=== PATIENT | female | born 2000 | race Caucasian/White ===

== ENCOUNTER 2025-02-06 01:01 | Day surgery (SDC) | payer BC, SELFPAY ==
[2025-02-04 18:32] VITALS: BMI 24.7
--- NOTE | 2025-02-04 19:03 | PC.NURSE ---
Report to the Outpatient Waiting Room, entrance under the green pavilion located off [facility], at 1230 on 02-06-25. Planned Procedure Time: 1430.? Time changes happen often and if your time is changed the preop area will call you the afternoon before. - You and your visitor will be asked to self-screen and do not enter if you have any COVID symptoms. Please call surgeon if you need to reschedule. - A mask is optional within the hospital at this time. Patients may have clear liquids (water, carbonated beverages, clear teas, apple juice) until 3 hours prior to surgery with a maximum of 20 ounces. 1130 - No food from midnight until time of surgery and no smoking, or chewing tobacco (or any form of nicotine). No chewing gum, candy or mints. - Infants may have breast milk until 4 hours before surgery, formula 6 hours prior to surgery. - Children will be allowed to drink immediately following surgery.? If applicable, please bring a bottle or sippy cup to assist with drinking. Juice, water, soda, and popsicles are readily available.? For infants on formula, please bring formula the day of surgery.? Pacifiers are allowed. Take only the following medications with a SIP of water on the morning of surgery: None DO NOT STOP ANY OF YOUR OTHER PRESCRIPTION MEDICATIONS PRIOR TO SURGERY EXCEPT THE FOLLOWING Hold all vitamins and supplements for 3 days per anesthesiologist. Medications to discontinue per physician: N/A Please no make-up, nail pashto, hairspray, perfume, deodorant, or body powder the day of surgery.? No jewelry (including any body piercings) or valuables the day of surgery, leave them at home.? Please take a shower or bath the night before, or the morning of, surgery with an antibacterial soap.? Wear comfortable, loose fitting clothing.? Children are encouraged to wear pajamas. - Jewelry must be removed prior to entering the operating room.? Rings and piercings that are not removed may be cut off. - The hospital will not accept responsibility for valuables.? - Please leave all valuables, including medications, at home the day of surgery. If you are going home after surgery, a licensed roll off driver must drive you home.? - NO public transportation without another adult if you receive anesthesia. - We recommend that an adult stay with you for 24 hours following discharge. - We also recommend that you do not drive, make important decision, drink alcoholic beverages, or take any drugs that were not prescribed by your health care provider for at least 24 hours after your discharge time. For Pediatric surgeries, we recommend two adults accompany the child home. Follow any additional instructions given to you from your surgeon. Telephone instructions given to Elida Gifford and asked if any additional questions and then verbalized understanding. Patient advised to call surgeon office or pre surgery nurse liaison [phone] if any additional questions.
--- OUTSIDE RECORDS SUMMARY | 2025-02-06 01:04 | XMS_ITS | Referral Summary ---
Author Organization [facility] Building A Address [address] [place] [address] Care Team Providers Care Nickel Plater Name Role Phone Nuris Arriaga MD Primary Care Provider Encounters Date Type Department Care Team Description 01/26/2025 2:16 PM CDT - 01/26/2025 3:17 PM CDT Emergency [facility] Emergency Department [address] [place] [address] Naty Kitchen MD First trimester bleeding (Primary Dx); Rh negative status during in first trimester Discharge Disposition: Discharge to home or self care 11/28/2024 2:28 AM DUMP MOTOR OPERATOR - 11/28/2024 6:22 AM [facility] Emergency [facility] Emergency Department [address] [place] [address] Bernardo Bobby MD Nausea/vomiting in (Primary Dx) Discharge Disposition: Discharge to home or self care from Last 3 Months Allergies No known active allergies Medications albuterol HFA (PROVENTIL HFA,VENTOLIN HFA,PROAIR HFA) 90 mcg/actuation inhaler INHALE 1 TO 2 PUFFS BY MOUTH EVERY 4 TO 6 HOURS NEEDED 9 Active loratadine (CLARITIN) 10 mg tablet Take 1 tablet (10 mg total) by mouth daily Active montelukast (SINGULAIR) 5 mg chewable tablet Take 1 tablet (5 mg total) by mouth daily 9 Active levothyroxine (SYNTHROID) 125 mcg tablet Take 1 tablet (125 mcg total) by mouth daily 90 tablet 1 3 Active PNV cmb 46-ixog-VZ-omega-3- dha 29 mg iron- 1 mg-200 mg combo packIndications:pre gnancy Take 1 tablet by mouth daily 30 each 8 5 Active doxylamine-pyridoxi ne, vit B6, (DICLEGIS) 10-10 mg tablet Take 1 tablet by mouth nightly as needed for nausea 30 tablet 2 5 Active ondansetron ODT (ZOFRAN-ODT) 8 mg disintegrating tabletIndications:E xcessive Vomiting in Take 1 tablet (8 mg total) by mouth every 8 (eight) hours as needed for nausea or vomiting Dissolve 1 tablet oral every 4 hours as needed for nausea or vomiting. 30 tablet 5 Active Active Problems Problem Noted Date Diagnosed Date First trimester bleeding 01/26/2025 Rh negative status during in first tri mester 01/26/2025 Primary hypothyroidism 02/21/2021 Assessment & Plan (05/14/2023 9:27 AM CDT): Diagnosed at the age of 5, and has been on levothyroxine under the care of pediatric Endocrinology -Disease has not been controlled due to non-compliance with Levothyroxine TSH was high at 75 on 02/24/21 TSH was still high at 30.47 on 09/09/21 TSH was still high at 12.4 on 03/27/22 Last TSh was 6.0 in October/2022 Patient again was not compliant with medication in last few month. Plan: Again Discussed with patient the importance of taking Levothyroxine on daily basis. Explained complication and symptoms of low thyroid. Continue same dose of Levothyroxine The proper way of taking Levothyroxine reviewed with patient. Check TSH and free T4 in 4-6 weeks I will adjust the dose based on lab results. Assessment & Plan (09/26/2022 10:21 AM DUMP MOTOR OPERATOR): Diagnosed at the age of 5, and has been on levothyroxine under the care of pediatric Endocrinology -Disease has not been controlled due to non-compliance with Levothyroxine TSH was high at 75 on 02/24/21 TSH was still high at 30.47 on 09/09/21 TSH was still high at 12.4 on 03/27/22 Plan: Again Discussed with patient the importance of taking Levothyroxine on daily basis. Explained complication and symptoms of low thyroid. Continue same dose of Levothyroxine The proper way of taking Levothyroxine reviewed with patient. Check TSH and free T4 today I will adjust the dose based on lab results. Patient informed about the need to check thyroid blood test once she gets as her levels may change and will need close monitoring during . Assessment & Plan (03/27/2022 10:03 AM CDT): Diagnosed at the age of 5, and has been on levothyroxine under the care of pediatric Endocrinology -Disease has not been controlled due to non-compliance with Levothyroxine TSH was high at 75 on 02/24/21 TSH was still high at 30.47 on 09/09/21 Plan: Discussed with patient the importance of taking Levothyroxine on daily basis. Explained complication and symptoms of low thyroid. Continue same dose of Levothyroxine The proper way of taking Levothyroxine reviewed with patient. Check TSH and free T4 today I will adjust the dose based on lab results. Patient informed about the need to check thyroid blood test once she gets as her levels may change and will need close monitoring during . Assessment & Plan (09/09/2021 10:20 AM CDT): Diagnosed at the age of 5, and has been on levothyroxine under the care of pediatric Endocrinology -Disease has not been controlled due to non-compliance with Levothyroxine TSH was high at 75 on 02/24/21 With low free T4 of 0.7 Plan: Discussed with patient the importance of taking Levothyroxine on daily basis. Continue same dose of Levothyroxine The proper way of taking Levothyroxine reviewed with patient. Check TSH and free T4 today I will adjust the dose based on lab results. Patient informed about the need to check thyroid blood test once she gets as her levels may change and will need close monitoring during . Assessment & Plan (02/21/2021 11:42 AM CDT): Diagnosed at the age of 5, and has been on levothyroxine under the care of pediatric Endocrinology Has history of non- compliance, but doing better lately Patient is clinically euthyroid TSH was 1.7 on 01/03/21 Plan: Continue same dose of Levothyroxine The proper way of taking Levothyroxine reviewed with patient. Check TSH before next visit. I will adjust the dose based on lab results. Patient informed about the need to check thyroid blood test once she gets as her levels may change and will need close monitoring during . Estimated Date of Delivery Comme nts Yes 08/04/2025 Immunizations Immunization Administration Dates Next Due DTaP 07/28/2008, 5,05/04/2004,05/05,02/17/2003,2002 HPV, Quadrivalent 05/18/2014,08/20/2012,06/20/20 12 Hep B / HiB 05/05/2003,2002 Hep B, Adolescent or Pediatric 2002 HiB 05/04/2004,02/17/2003 IPV 05/22/2005, 4,02/17/2003,12/02 Influenza, Quadrivalent, Spl it, Preservative Free, Intramuscular 08/30/2020 Influenza, Split 09/15/2008 MMR 07/28/2008,05/22/2005,10/26/2003 Meningococcal B, OMV (Bexsero) 08/30/2020 Meningococcal MCV4P (Menactra) 08/30/2020,2013 OPV 07/28/2008 Tdap 05/01/2014 Varicella 10/03/2010,10/26/2003 Social History Tobacco Use Types Packs/Day Years Used Date Smoking Tobacco: Every Day Vaping Smokeless Tobacco: Never Tobacco Cessation:Ready to Q uit: Not Asked; Counseling Given: Not Answered Personal Safety Answer Date Recorded Have you ever been in or are you currently in a harmful physical or emotional relationship or is someone making you feel afraid or unsafe? Denies 01/26/2025 Estimated Date of Delivery Comme nts Yes 08/04/2025 Sex and Gender Information Value Date Recorded Sex Assigned at Not on file Legal Sex Female 2:56 PM CDT Gender Identity Female 09/26/2022 9:40 AM DUMP MOTOR OPERATOR Sexual Orientation Not on file Last Filed Vital Signs Vital Sign Reading Time Taken Comments Blood Pressure 113/66 01/26/2025 1:59 PM CDT Pulse 59 01/26/2025 1:59 PM CDT Temperature 36.7 C (98 F) 01/26/2025 1:59 PM CDT Respiratory Rate 16 01/26/2025 1:59 PM CDT Oxygen Saturation 100% 01/26/2025 1:59 PM CDT Inhaled Oxygen Concentration - - Weight 71.2 kg (157 lb) 01/26/2025 12:23 PM CDT Height 170.2 cm (5' 7 ) 01/26/2025 12:23 PM CDT Body Mass Index 24.59 01/26/2025 12:23 PM CDT Plan of Treatment Not on file Procedures Procedure Name Priority Date/Time Associated Diagnosis Comments US OB UNDER 14 WEEKS ED 01/26/2025 2:12 PM CDT DIFFERENTIAL AUTO STAT 01/26/2025 12: 31 PM CDT ABO/RH STAT 01/26/2025 12:31 PM CDT HCG, BLOOD, QUANTITATIVE STAT 01/26/2025 12:31 PM CDT CBC WITH AUTO DIFFERENTIAL STAT 01/26/2025 12:31 PM CDT URINALYSIS, MICROSCOPIC ONLY STAT 11/28/2024 4:09 AM DUMP MOTOR OPERATOR URINALYSIS AND REFLEX TO MICROSCOPIC STAT 11/28/2024 4:09 AM DUMP MOTOR OPERATOR POCT HCG, URINE Routine 11/28/2024 4:06 AM DUMP MOTOR OPERATOR EGFR STAT 11/28/2024 3:03 AM DUMP MOTOR OPERATOR DIFFERENTIAL AUTO STAT 11/28/2024 3:0 3 AM DUMP MOTOR OPERATOR COMPREHENSIVE METABOLIC PANEL STAT 11/28/2024 3:03 AM DUMP MOTOR OPERATOR CBC WITH AUTO DIFFERENTIAL STAT 11/28/2024 3:03 AM DUMP MOTOR OPERATOR from Last 3 Months Results * US Ob Under 14 Weeks (01/26/2025 2:12 PM CDT) Anatomical Region Laterality Modality Abdomen N/A Ultrasound 01/26/2025 2:07 PM CDT Narrative 01/26/2025 2:12 PM CDT EXAM DESCRIPTION: US PELVIS COMPLETE REASON FOR STUDY: Bleeding and pain during . Exclude ectopic. Beta-hCG: None available TECHNIQUE: Transabdominal images acquired of the pelvis. COMPARISON: None FINDINGS: Clinical gestational age: 12 weeks and 6 days Clinical estimated Due Date: 08/04/2025 Intrauterine gestational sac: Present Yolk sac: Present Subchorionic bleed: No Placenta: Not identified Osyka-rump length: 4.45 cm heart rate: 146 bpm Gestational age by this ultrasound: 11 weeks and 2 days MAC[place] by this ultrasound: 08/15/2025 Uterus: The uterus is anteverted , measuring 9.4 x 4.9 x 7.7 cm. Right Ovary/Adnexa: The right ovary measures 3.0 x 2.7 x 2.4 cm. There is documentation of color Doppler flow in the right ovary. The right ovary appears unremarkable. No adnexal mass. Left Ovary/Adnexa: The left ovary measures 3.0 x 2.1 x 1.5 cm. There is documentation of color Doppler flow in the left ovary. The left ovary appears unremarkable. No adnexal mass. Free Fluid: None. Other Findings: None. IMPRESSION: Suboptimal examination due to transabdominal only images. 1. Single live intrauterine with estimated gestational age by ultrasound of 11 weeks and 2 days and estimated due date of 08/15/2025. The heart rate is 146 beats per minute. The stated clinical age is 12 weeks and 6 days. Short-term follow-up is recommended. THIS IS AN ELECTRONICALLY VERIFIED FINAL REPORT 01/26/2025 2:12 PM - Electronically signed by Raoul Gao M.D. AG: RICHIE Report ID: [id number] Reading Location: [id number] Procedure Note Raoul Gao MD - 01/26/2025 EXAM DESCRIPTION: US PELVIS COMPLETE REASON FOR STUDY: Bleeding and pain during . Exclude ectopic. Beta-hCG: None available TECHNIQUE: Transabdominal images acquired of the pelvis. COMPARISON: None FINDINGS: Clinical gestational age: 12 weeks and 6 days Clinical estimated Due Date: 08/04/2025 Intrauterine gestational sac: Present Yolk sac: Present Subchorionic bleed: No Placenta: Not identified Osyka-rump length: 4.45 cm heart rate: 146 bpm Gestational age by this ultrasound: 11 weeks and 2 days MAC[place]IO by this ultrasound: 08/15/2025 Uterus: The uterus is anteverted , measuring 9.4 x 4.9 x 7.7 cm. Right Ovary/Adnexa: The right ovary measures 3.0 x 2.7 x 2.4 cm. Thereis documentation of color Doppler flow in the right ovary. The right ovary appears unremarkable. No adnexal mass. Left Ovary/Adnexa: The left ovary measures 3.0 x 2.1 x 1.5 cm. There is documentation of color Doppler flow in the left ovary. The left ovaryappears unremarkable. No adnexal mass. Free Fluid: None. Other Findings: None. IMPRESSION: Suboptimal examination due to transabdominal only images. 1. Single live intrauterine with estimated gestational age by ultrasound of 11 weeks and 2 days and estimated due date of 08/15/2025.The heart rate is 146 beats per minute. The stated clinical age is 12weeks and 6 days. Short-term follow-up is recommended. THIS IS AN ELECTRONICALLY VERIFIED FINAL REPORT 01/26/2025 2:12 PM - Electronically signed by Raoul Gao M.D. AG: AG Report ID: [id number] Reading Location: [id number] us [facility] IMG OB US PROCEDURES Final R esult * Differential, auto (01/26/2025 12:31 PM CDT) Neutrophil abs 5.7 1.5 - 6.5 K/cumm Imm gran abs 0.0 0.0 - 0.1 K/cumm [facility] Lymphocyte abs 2.5 0.8 - 3.3 K/cumm [facility] Monocyte abs 0.6 0.2 - 0.8 K/cumm [facility] ([place]) Eosinophil abs 0.1 0.0 - 0.5 K/cumm [facility] ([place]) Basophil abs 0.0 0.0 - 0.1 K/cumm [facility]) Neutrophil pct 63.8 % [facility] Comment: Interpretive Data Percent cell count reference ranges are not reported, since discordance with absolute values may lead to misinterpretation of CBC data. Current Interpretive Data was last revised on 2018. Imm gran pct 0.3 % [facility] Comment: Interpretive Data Percent cell count reference ranges are not reported, since discordance with absolute values may lead to misinterpretation of CBC data. Current Interpretive Data was last revised on 2018. Lymphocyte pct 27.6 % [facility] Comment: Interpretive Data Percent cell count reference ranges are not reported, since discordance with absolute values may lead to misinterpretation of CBC data. Current Interpretive Data was last revised on 2018. Monocyte pct 7.0 % [facility] Comment: Interpretive Data Percent cell count reference ranges are not reported, since discordance with absolute values may lead to misinterpretation of CBC data. Current Interpretive Data was last revised on 2018. Eosinophil pct 0.8 % [facility] Comment: Interpretive Data Percent cell count reference ranges are not reported, since discordance with absolute values may lead to misinterpretation of CBC data. Current Interpretive Data was last revised on 2018. Basophil pct 0.5 % [facility] Comment: Interpretive Data Percent cell count reference ranges are not reported, since discordance with absolute values may lead to misinterpretation of CBC data. Current Interpretive Data was last revised on 2018. Blood 01/26/2025 12:3 1 PM CDT 01/26/2025 12:34 PM CDT Geoffrey Mark MD LAB BLOOD ORDERABLES Final Res ult [facility] ([place]) 1 [facility] Department [place] [address] * (ABNORMAL) CBC with auto differential (01/26/2025 12:31 PM CDT) Pathologist [facility] WBC 8.9 3.8 - 9.9 K/cumm Hgb 12.6 11.9 - 15.5 g/dL [facility] Hct 37.9 35.6 - 45.5 % [facility] Plt 181 150 - 400 K/cumm [facility] MPV 8.8(L) 9.1 - 12.3 fL [facility] RBC 4.13 3.90 - 5.20 M/cumm [facility] MCV 91.8 81.3 - 96.4 fL [facility] MCH 30.5 27.1 - 33.3 pg [facility] MCHC 33.2 32.3 - 35.7 g/dL [facility] RDW CV 12.1 11.1 - 14.9 % [facility] RDW SD 40.6 35.7 - 48.1 fL [facility] NRBC abs 0.00 0.00 - 0.01 K/cumm [facility] Blood Venous blood specimen / Unknown 01/26/2025 12:31 PM CDT 01/26/2025 12:34 PM CDT Geoffrey Mark MD LAB BLOOD ORDERABLES Final Res ult [facility] ([place]) 1 [facility] [place] [address] * ABO/Rh (01/26/2025 12:31 PM CDT) ABO/Rh AB Negative Blood 01/26/2025 12:3 1 PM CDT 01/26/2025 12:34 PM CDT Geoffrey Mark MD LAB BLOOD BANK TEST ORDERABLES Final Result Performing Organization Address [facility] Co de Phone Number [facility] ([place]) [address] [place] [address] * (ABNORMAL) hCG, blood, quantitative (01/26/2025 12:31 PM CDT) hCG, quant 4,335.0(H ) 0.0 - 5.0 IUnits/L Comment: Interpretive Data Male: < 5 IU/L Non- premenopausal Female: <5 IU/L The [place] hCG Beta Quant assay procedure was used. Results from different manufacturers or methods may not be comparable. Serial testing should be performed using the same method. Interpretive Data was last revised on 2023 Blood 01/26/2025 12:3 1 PM CDT 01/26/2025 12:34 PM CDT Geoffrey Mark MD LAB BLOOD ORDERABLES Edited Re sult - Final Performing Organization Address City/[facility] Co de Phone Number [facility] ([place]) [address] [place] [address] * (ABNORMAL) Urinalysis reflex to microscopic (11/28/2024 4:09 AM DUMP MOTOR OPERATOR) Color, ur Yellow Yellow Clarity, ur Cloudy(A) Clear [facility] Specific gravity, ur 1.031(H) 1.003 - 1.030 [facility] pH, urine 7.0 [facility] Comment: Interpretive Data U rine pH is affected by diet, medications, systemic acid-base disturbances, and renal tubular function. pH may affect urinary stone formation. For example, urine pH below 6.0 may help reduce the tendency for calcium phosphate stones and pH greater than 6.0 may reduce the tendency for uric acid stone formation. Source: [facility] [employer] Current Interpretive Data was last revised on 2017 Protein, ur ql 1+(A) Negative [facility] Glucose, ur ql Negative Negative [facility] Ketones, ur 1+(A) Negative [facility] Bilirubin, ur Negative Negative [facility] Blood, ur Negative Negative [facility] Urobilinogen, ur <2.0 <2.0 mg/dL [facility] Nitrite, ur Positive(A) Negative [facility] Leukocyte esterase, ur Trace(A) Negative [facility] UA reflex comment Reflex to microscopic UA will be performed. [facility] Urine 11/28/2024 4:09 AM DUMP MOTOR OPERATOR 11/28/2024 4:16 AM DUMP MOTOR OPERATOR Bernardo Bobby MD LAB URINE ORDERABLES Fin al Result Performing Organization Address [facility] Co de Phone Number [facility] Department [place] [address] * (ABNORMAL) Urinalysis, microscopic only (11/28/2024 4:09 AM DUMP MOTOR OPERATOR) WBC, ur 6-10(A) 0 - 5 /HPF RBC, ur 0-2 0 - 2 /HPF [facility] Epithelial cells, squamous, ur 6-10(A) 0 - 5 /HPF [facility] Comment:Suggestive of contam ination. Consider recollection by clean catch. Bacteria, ur 4+(A) [facility] Mucous, ur Present(A ) [facility] Urine 11/28/2024 4:09 AM DUMP MOTOR OPERATOR 11/28/2024 4:16 AM DUMP MOTOR OPERATOR Bernardo Bobby MD LAB URINE ORDERABLES Fin al Result Performing Organization Address [facility] Co de Phone Number [facility] [place] [address] * (ABNORMAL) POCT hCG, urine (11/28/2024 4:06 AM DUMP MOTOR OPERATOR) HCG, ur, POC Positive(A) Negative Lot Number [id number] QC Backgroud Clear Acceptable QC Control Line Acceptable Urine 11/28/2024 4:06 AM DUMP MOTOR OPERATOR Bernardo Bobby MD POINT OF CARE TEST ORDER JARED Final Result * eGFR (11/28/2024 3:03 AM DUMP MOTOR OPERATOR) eGFR >90 >=60 mL/min/1. 73 m2 Comment: Interpretive Data Reference Interval Normal >/= 90 mL/min/1.73m2 Mildly decreased* 60 - 89 mL/min/1.73m2 Mildly to moderately decreased 45 - 59 mL/min/1.73m2 Moderately to severely decreased 30 - 44 mL/min/1.73m2 Severely decreased 15 - 29 mL/min/1.73m2 Kidney Failure < 15 mL/min/1.73m2 *Relative to young adult level Estimated glomerular filtration rate is determined by the 2020 CKD-EPI equation recommended by the National Kidney Foundation (A Unifying Approach to GFR Estimation: Recommendations of the NKF-ASK Task Force on Reassessing the Inclusion of Race in Diagnosing Kidney Disease, JASN 2020). The CKD-EPI equation should not be used for patients with unstable renal function and has not been validated in children and those over 70. Current interpretive data was last reviewed 2021. Blood 11/28/2024 3:03 AM DUMP MOTOR OPERATOR 11/28/2024 3:17 AM DUMP MOTOR OPERATOR Bernardo Bobby MD LAB BLOOD ORDERABLES Fin al Result [facility] [place] [address] * (ABNORMAL) Differential, auto (11/28/2024 3:03 AM DUMP MOTOR OPERATOR) Neutrophil abs 12.3(H) 1.5 - 6.5 K/cumm Imm gran abs 0.1 0.0 - 0.1 K/cumm [facility] Lymphocyte abs 1.0 0.8 - 3.3 K/cumm [facility] Monocyte abs 1.0(H) 0.2 - 0.8 K/cumm [facility] Eosinophil abs 0.1 0.0 - 0.5 K/cumm [facility] Basophil abs 0.0 0.0 - 0.1 K/cumm [facility] Neutrophil pct 85.4 % [facility] Comment: Interpretive Data Percent cell count reference ranges are not reported, since discordance with absolute values may lead to misinterpretation of CBC data. Current Interpretive Data was last revised on 2018. Imm gran pct 0.6 % [facility] Comment: Interpretive Data Percent cell count reference ranges are not reported, since discordance with absolute values may lead to misinterpretation of CBC data. Current Interpretive Data was last revised on 2018. Lymphocyte pct 6.7 % [facility] Comment: Interpretive Data Percent cell count reference ranges are not reported, since discordance with absolute values may lead to misinterpretation of CBC data. Current Interpretive Data was last revised on 2018. Monocyte pct 6.7 % [facility] Comment: Interpretive Data Percent cell count reference ranges are not reported, since discordance with absolute values may lead to misinterpretation of CBC data. Current Interpretive Data was last revised on 2018. Eosinophil pct 0.4 % [facility] Comment: Interpretive Data Percent cell count reference ranges are not reported, since discordance with absolute values may lead to misinterpretation of CBC data. Current Interpretive Data was last revised on 2018. Basophil pct 0.2 % [facility] Comment: Interpretive Data Percent cell count reference ranges are not reported, since discordance with absolute values may lead to misinterpretation of CBC data. Current Interpretive Data was last revised on 2018. Blood 11/28/2024 3:03 AM DUMP MOTOR OPERATOR 11/28/2024 3:45 AM DUMP MOTOR OPERATOR us Bernardo Bobby MD LAB BLOOD ORDERABLES Fin al Result [facility] Department [place] [address] * (ABNORMAL) CBC with auto differential (11/28/2024 3:03 AM DUMP MOTOR OPERATOR) [facility] [address] WBC 14.4(H) 3.8 - 9.9 K/cumm Hgb 12.9 11.9 - 15.5 g/dL [facility] Hct 38.4 35.6 - 45.5 % [facility] Plt 196 150 - 400 K/cumm [facility] MPV 9.2 9.1 - 12.3 fL [facility] RBC 4.30 3.90 - 5.20 M/cumm [facility] MCV 89.3 81.3 - 96.4 fL [facility] MCH 30.0 27.1 - 33.3 pg [facility] MCHC 33.6 32.3 - 35.7 g/dL [facility] RDW CV 12.1 11.1 - 14.9 % [facility] RDW SD 39.5 35.7 - 48.1 fL [facility] NRBC abs 0.00 0.00 - 0.01 K/cumm [facility] Blood Venous blood specimen / Unknown 11/28/2024 3:03 AM DUMP MOTOR OPERATOR 11/28/2024 3:45 AM DUMP MOTOR OPERATOR us Bernardo Bobby MD LAB BLOOD ORDERABLES Fin al Result [facility] Department [place] [address] * Comprehensive metabolic panel (11/28/2024 3:03 AM DUMP MOTOR OPERATOR) [facility] [address] Sodium 139 135 - 145 mmol/L Potassium, pl 4.2 3.3 - 4.9 mmol/L [facility] Chloride 106 97 - 110 mmol/L [facility] CO2 24 22 - 32 mmol/L [facility] Anion gap 9 2 - 15 mmol/L [facility] BUN 14 6 - 25 mg/dL [facility] Creatinine 0.85 0.60 - 1.10 mg/dL [facility] Glucose 104 70 - 199 mg/dL [facility] Comment: Interpretive Data Fasting glucose >/= 126 mg/dl is diagnostic for diabetes. Fasting is defined as no caloric intake for at least 8 hours. Fasting glucose between 100 mg/dl to 125 mg/dl is diagnostic of prediabetes. In a patient with classic symptoms of hyperglycemia or hyperglycemic crisis, a random glucose >/= 200 mg/dl is diagnostic for diabetes. In the absence of unequivocal hyperglycemia, results should be confirmed by repeat testing. The classification and Diagnosis of Diabetes Diabetes Care 202; 46: S19-S40. Current interpretive data was last revised 2022. Calcium 8.9 8.5 - 10.3 mg/dL [facility] Bilirubin, total 0.4 0.1 - 1.2 mg/dL [facility] Protein, pl 7.6 6.5 - 8.5 g/dL [facility] Albumin 4.6 3.5 - 5.0 g/dL [facility] Alk phos 56 40 - 130 Units/L [facility] ALT 13 7 - 45 Units/L [facility] AST 25 10 - 45 Units/L [facility] Blood Venous blood specimen / Unknown 11/28/2024 3:03 AM DUMP MOTOR OPERATOR 11/28/2024 3:17 AM DUMP MOTOR OPERATOR us Bernardo Bobby MD LAB BLOOD ORDERABLES Fin al Result [facility] [place] [address] from Last 3 Months Insurance [facility] ANTHEM ACCESS CHOICE ANTHEM ACCESS CHOICE Care Teams Nickel Plater Relationship Specialty Start Date End Date Nuris Arriaga MD [address] [place] [id number] PCP - General Internal Medicine 01/26/21
--- OUTSIDE RECORDS SUMMARY | 2025-02-06 01:05 | XMS_ITS | Clinical Summary ---
Author Organization [facility] Address [address] [place] [address] Care Team Providers Care Real Estate Appraiser Name Role Phone Nuris Arriaga MD Primary Care Provider Allergies No known active allergies Medications VENTOLIN HFA 108 (90 Base) MCG/ACT inhaler INHALE 1 TO 2 PUFFS BY MOUTH EVERY 4 TO 6 HOURS NEEDED 2 9 Active cloNIDine 0.1 MG tablet Take 0.1 mg by mouth nightly at bedtime. at bedtime 3 9 Active montelukast 5 MG chewable tablet Chew 5 mg by mouth nightly at bedtime. 3 9 Active loratadine 10 MG tablet Take 10 mg by mouth daily. Active levothyroxine 112 MCG tablet 0 Active methylPREDNISol one, BHARAT, 4 MG tablet Follow pack instructions 1 each 0 Active traMADol (ULTRAM) 50 MG tabletIndicatio ns:Acute Pain < 7 Day Supply Indications: Acute Pain < 7 Day Supply 1-2 tabs po q6 hours prn pain 16 tablet 1 Active Active Problems No known active problems Social History Tobacco Use Types Packs/Day Years Used Date Smoking Tobacco: Passive Smo ke Exposure - Never Smoker Smokeless Tobacco: Never Alcohol Use Standard Drinks/Week Comments No 0 (1 standard drink = 0.6 oz pur e alcohol) AUDIT-C Answer Date Recorded Frequency of Alcohol Consumption Never 03/03/2019 Average Number of Drinks Not on file 019 Frequency of Binge Drinking Not on file 02/11 Comments No Sex and Gender Information Value Date Recorded Sex Assigned at Not on file Legal Sex Female 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 Gender Identity Not on file Sexual Orientation Not on file Last Filed Vital Signs Vital Sign Reading Time Taken Comments Blood Pressure 106/63 11/27/2022 4:11 PM PLASMA CUTTING MACHINE OPERATOR Pulse 71 11/27/2022 4:11 PM PLASMA CUTTING MACHINE OPERATOR Temperature 36.9 C (98.4 F) 11/27/2022 4:11 PM PLASMA CUTTING MACHINE OPERATOR Respiratory Rate 18 11/27/2022 4:11 PM PLASMA CUTTING MACHINE OPERATOR Oxygen Saturation 100% 11/27/2022 4:11 PM PLASMA CUTTING MACHINE OPERATOR Inhaled Oxygen Concentration - - Weight 57.6 kg (127 lb) 11/27/2022 4:11 PM PLASMA CUTTING MACHINE OPERATOR Height 167.6 cm (5' 6 ) 11/27/2022 4:11 PM PLASMA CUTTING MACHINE OPERATOR Body Mass Index 20.5 11/27/2022 4:11 PM PLASMA CUTTING MACHINE OPERATOR Plan of Treatment Health Maintenance Due Date Last Done Comments Cervical Cancer Screening Pap Smear (Age 21 to 29) Every 3 Years 2002 Cervical Cancer Screening 2002 Annual Physical 2005 DTaP, Tdap and Td Vaccines (6 - Tdap) 2013 07/28/2008, 05/22/2005, 05/04/2004, Additional history exists Chlamydia Screening Females ages 16-24 2018 Hepatitis C 2020 Meningococcal B Vaccine (2 of 2 - Bexsero SCDM 2-dose series) 02/28/2021 08/30/2020 Hepatitis B Vaccines (1 of 3 - 19+ 3-dose series) 2021 COVID-19 Vaccine ( season) 2024 Influenza Adult (#1) 2024 HPV Vaccines Completed 05/18/2014, 07/2012, 06/20/2012 Meningococcal Vaccine Completed 08/30/2020, 014 Pneumococcal Vaccine: Pediatrics (0 to 5 Years) and At-Risk Patients (6 to 64 Years) Aged Out No longer eligible based on patient's age to complete this topic RSV Immunizations Under 20 Months Aged Out No longer eligible based on patient's age to complete this topic Insurance MERID[employer] MER[employer]IAN Care Teams Real Estate Appraiser Relationship Specialty Start Date End Date Nuris Arriaga MD [address] [phone] PCP - General INTERNAL MEDICINE 11/02/20
--- OUTSIDE RECORDS SUMMARY | 2025-02-06 01:05 | XMS_ITS | Clinical Summary ---
Author Organization [facility] Medical Office Building A Address [address] [place] [address] Care Team Providers Care Marketing Outreach Coordinator Name Role Phone Nuris Arriaga MD Primary Care Provider Allergies No known active allergies Medications albuterol [...] 90 tablet 1 3 Active PNV cmb [id number] [id number] 29 mg iron- 1 mg-200 mg [...] results. Assessment & Plan (09/26/2022 10:21 AM SECURITY NURSE): Diagnosed at the age of 5, and [...] Date of Delivery Comme nts Yes 08/04/2025 Encounters Date Type Department Care Team Description 01/26/2025 2:16 PM CDT - 01/26/2025 3:17 PM CDT Emergency [facility] Emergency Department [address] [place] [address] Naty Kitchen MD First trimester bleeding (Primary Dx); Rh negative status during in first trimester Discharge Disposition: Discharge to home or self care 11/28/2024 2:28 AM SECURITY NURSE - 11/28/2024 6:22 AM SECURITY NURSE Emergency [facility] Emergency Department [address] [place] [address] Bernardo Bobby MD Nausea/vomiting in (Primary Dx) Discharge Disposition: Discharge to home or self care from Last 3 Months Immunizations Immunization Administration Dates Next Due DTaP 07/28/2008, 5,05/04/2004,05/05,02/17/2003,2002 HPV, Quadrivalent 05/18/2014,08/20/2012,06/20/20 12 Hep B / HiB 05/05/2003,2002 Hep B, Adolescent or Pediatric 2002 HiB 05/04/2004,02/17/2003 IPV 05/22/2005, 4,02/17/2003,12/02 Influenza, Quadrivalent, Spl it, Preservative Free, Intramuscular 08/30/2020 Influenza, Split 09/15/2008 MMR 07/28/2008,05/22/2005,10/26/2003 Meningococcal B, OMV (Bexsero) 08/30/2020 Meningococcal MCV4P (Menactra) 08/30/2020,2013 OPV 07/28/2008 Tdap 05/01/2014 Varicella 10/03/2010,10/26/2003 Family History Medical History Relation Name Comments Thyroid disease Mother Relation Name Status Comments Mother Social History Tobacco Use Types Packs/Day Years [...] CDT Gender Identity Female 09/26/2022 9:40 AM SECURITY NURSE Sexual Orientation Not on file Obstetrics History Para Term AB IAB SAB Ectopic Multiple Livin g Live Births 1 Date Outcome GA Total Labor Labor/2nd/3rd Weight Sex Type Anes PTL Keisha A1 A5 Name Clin Current Last Filed Vital Signs Vital Sign Reading [...] 01/26/2025 12:23 PM CDT Plan of Treatment Health Maintenance Due Date Last Done Comments Cervical Cancer Screening 2002 Depression Screening 2002 Hepatitis C Screening 2002 Regular Well Visit/Exam 18-64 2020 Meningococcal B Vaccine (2 o f 2 - Bexsero SCDM 2-dose series) 02/28/2021 08/30/2020 Pneumococcal vaccine <65 (1 of 2 - PCV) 2021 DTaP/Tdap/Td Vaccine (7 - Td or Tdap) 05/01/2024 05/01/2014, 07/28/2008, 05/22/2005, Additional history exists Covid-19 Vaccine (3 - 2023-2 5 season) 2024 08/13/2021, 07/23/2021 Influenza Vaccine (#1) 2024 08/30/2020, 2007 Hepatitis B Screening Completed 05/05/2003 , 2002, 2002 Varicella Vaccines Completed 10/03/2010, 10/26/2003 HPV Vaccines Completed 05/18/2014, 1007/2012, 06/20/2012 Procedures Procedure Name Priority Date/Time Associated Diagnosis Comments US OB UNDER 14 WEEKS ED 01/26/2025 2:12 PM CDT DIFFERENTIAL AUTO STAT 01/26/2025 12: 31 PM CDT ABO/RH STAT 01/26/2025 12:31 PM CDT HCG, BLOOD, QUANTITATIVE STAT 01/26/2025 12:31 PM CDT CBC WITH AUTO DIFFERENTIAL STAT 01/26/2025 12:31 PM CDT URINALYSIS, MICROSCOPIC ONLY STAT 11/28/2024 4:09 AM SECURITY NURSE URINALYSIS AND REFLEX TO MICROSCOPIC STAT 11/28/2024 4:09 AM SECURITY NURSE POCT HCG, URINE Routine 11/28/2024 4:06 AM SECURITY NURSE EGFR STAT 11/28/2024 3:03 AM SECURITY NURSE DIFFERENTIAL AUTO STAT 11/28/2024 3:0 3 AM SECURITY NURSE COMPREHENSIVE METABOLIC PANEL STAT 11/28/2024 3:03 AM SECURITY NURSE CBC WITH AUTO DIFFERENTIAL STAT 11/28/2024 3:03 AM SECURITY NURSE from Last 3 Months Results * US [...] Present Subchorionic bleed: No Placenta: Not identified Blackburn-rump length: 4.45 cm heart rate: 146 bpm [...] Raoul Gao M.D. AG: RICHIE Report ID: [id number] Reading Location: [id number] Procedure Note Raoul Gao MD - 01/26/2025 EXAM DESCRIPTION: US PELVIS COMPLETE REASON FOR STUDY: Bleeding and pain during . Exclude ectopic. Beta-hCG: None available TECHNIQUE: Transabdominal images acquired of the pelvis. COMPARISON: None FINDINGS: Clinical gestational age: 12 weeks and 6 days Clinical estimated Due Date: 08/04/2025 Intrauterine gestational sac: Present Yolk sac: Present Subchorionic bleed: No Placenta: Not identified Blackburn-rump length: 4.45 cm heart rate: 146 bpm [...] Raoul Gao M.D. AG: AG Report ID: [id number] Reading Location: [place] [address] us Festus MATTHEWS IMG OB US PROCEDURES [...] revised on 2018. Monocyte pct 7.0 % [facility] Comment: Interpretive Data Percent cell [...] revised on 2018. Basophil pct 0.5 % [facility] Comment: Interpretive Data Percent cell count reference ranges are not reported, since discordance with absolute values may lead to misinterpretation of CBC data. Current Interpretive Data was last revised on 2018. Blood 01/26/2025 12:3 1 PM CDT 01/26/2025 12:34 PM CDT us Geoffrey Mark MD LAB BLOOD ORDERABLES Final Res ult [facility] ([place]) 1 [facility] [place] [address] * (ABNORMAL) CBC with auto differential (01/26/2025 12:31 PM CDT) WBC 8.9 3.8 - 9.9 K/cumm Hgb 12.6 11.9 - 15.5 g/dL [facility] Hct 37.9 35.6 - 45.5 % [facility] ([place]) Plt 181 150 - 400 K/cumm [facility] ([place]) MPV 8.8(L) 9.1 - 12.3 fL [facility] ([place]) RBC 4.13 3.90 - 5.20 M/cumm [facility] ([place]) MCV 91.8 81.3 - 96.4 fL [facility] ([place]) MCH 30.5 27.1 - 33.3 pg [facility] ([place]) MCHC 33.2 32.3 - 35.7 g/dL [facility] ([place] RDW CV 12.1 11.1 - 14.9 % [facility] ([place] RDW SD 40.6 35.7 - 48.1 fL [facility] ([place] NRBC abs 0.00 0.00 - 0.01 K/cumm [facility] ([place]) Blood Venous blood specimen / Unknown 01/26/2025 12:31 PM CDT 01/26/2025 12:34 PM CDT Geoffrey Mark MD LAB BLOOD ORDERABLES Final Res ult Performing Organization Address City/[facility]/ZIP Co de Phone Number [facility] ([place]) 1 [facility] [place] [address] * ABO/Rh (01/26/2025 12:31 PM CDT) [facility] ABO/Rh AB Negative Blood 01/26/2025 12:3 1 PM CDT 01/26/2025 12:34 PM CDT Geoffrey Mark MD LAB BLOOD BANK TEST ORDERABLES Final Result Performing Organization Address City/[facility] Co de Phone Number [facility] ([place]) 1 [facility] [place] [address] * (ABNORMAL) hCG, blood, quantitative (01/26/2025 12:31 PM CDT) Pathologist [facility] hCG, quant 4,335.0(H ) 0.0 - 5.0 [...] 1 PM CDT 01/26/2025 12:34 PM CDT us Geoffrey Mark MD LAB BLOOD ORDERABLES Edited Re sult - Final [facility] ([place]) 1 [facility] [place] [address] * (ABNORMAL) Urinalysis reflex to microscopic (11/28/2024 4:09 AM SECURITY NURSE) Color, ur Yellow Yellow Clarity, ur Cloudy(A) Clear [facility] Specific gravity, ur 1.031(H) 1.003 - 1.030 [facility] pH, urine 7.0 [facility] Comment: Interpretive Data U rine pH is affected by diet, medications, systemic acid-base disturbances, and renal tubular function. pH may affect urinary stone formation. For example, urine pH below 6.0 may help reduce the tendency for calcium phosphate stones and pH greater than 6.0 may reduce the tendency for uric acid stone formation. Source: [facility] Current Interpretive Data was last revised on 2017 Protein, ur ql 1+(A) Negative [facility] Glucose, ur ql Negative Negative [facility] Ketones, ur 1+(A) Negative [facility] Bilirubin, ur Negative Negative [facility] Blood, ur Negative Negative [facility] Urobilinogen, ur <2.0 <2.0 mg/dL [facility] Nitrite, ur Positive(A) Negative [facility] Leukocyte esterase, ur Trace(A) Negative [facility] UA reflex comment Reflex to microscopic UA will be performed. [facility] Urine 11/28/2024 4:09 AM SECURITY NURSE 11/28/2024 4:16 AM SECURITY NURSE us Bernardo Bobby MD LAB URINE ORDERABLES Fin al Result [facility] [place] [address] * (ABNORMAL) Urinalysis, microscopic only (11/28/2024 4:09 AM SECURITY NURSE) [facility] WBC, ur 6-10(A) 0 - 5 /HPF RBC, ur 0-2 0 - 2 /HPF [facility] Epithelial cells, squamous, ur 6-10(A) 0 - 5 /HPF [facility] Comment:Suggestive of contam ination. Consider recollection by clean catch. Bacteria, ur 4+(A) [facility] Mucous, ur Present(A ) [facility] Urine 11/28/2024 4:09 AM SECURITY NURSE 11/28/2024 4:16 AM SECURITY NURSE us Bernardo Bobby MD LAB URINE ORDERABLES Fin al Result [facility] [place] [address] * (ABNORMAL) POCT hCG, urine (11/28/2024 4:06 AM SECURITY NURSE) [facility] HCG, ur, POC Positive(A) Negative Lot Number [id number] QC Backgroud Clear Acceptable QC Control Line Acceptable Urine 11/28/2024 4:06 AM SECURITY NURSE us Bernardo Bobby MD POINT OF CARE TEST ORDER JARED Final Result * eGFR (11/28/2024 3:03 AM SECURITY NURSE) [facility] eGFR >90 >=60 mL/min/1. 73 m2 Comment: [...] last reviewed 2021. Blood 11/28/2024 3:03 AM SECURITY NURSE 11/28/2024 3:17 AM SECURITY NURSE us Bernardo Bobby MD LAB BLOOD ORDERABLES Fin al Result [facility] [place] [address] * (ABNORMAL) Differential, auto (11/28/2024 3:03 AM SECURITY NURSE) Neutrophil abs 12.3(H) 1.5 - 6.5 K/cumm Imm gran abs 0.1 0.0 - 0.1 K/cumm [facility] Lymphocyte abs 1.0 0.8 - 3.3 K/cumm [facility] Monocyte abs 1.0(H) 0.2 - 0.8 K/cumm [facility] Eosinophil abs 0.1 0.0 - 0.5 K/cumm [facility] Basophil abs 0.0 0.0 - 0.1 K/cumm [facility] Neutrophil pct 85.4 % [facility] Comment: Interpretive Data Percent cell count reference ranges are not reported, since discordance with absolute values may lead to misinterpretation of CBC data. Current Interpretive Data was last revised on 2018. Imm gran pct 0.6 % [facility] Comment: Interpretive Data Percent cell count reference ranges are not reported, since discordance with absolute values may lead to misinterpretation of CBC data. Current Interpretive Data was last revised on 2018. Lymphocyte pct 6.7 % [facility] Comment: Interpretive Data Percent cell count reference ranges are not reported, since discordance with absolute values may lead to misinterpretation of CBC data. Current Interpretive Data was last revised on 2018. Monocyte pct 6.7 % [facility] Comment: Interpretive Data Percent cell count reference ranges are not reported, since discordance with absolute values may lead to misinterpretation of CBC data. Current Interpretive Data was last revised on 2018. Eosinophil pct 0.4 % [facility] Comment: Interpretive Data Percent cell count reference ranges are not reported, since discordance with absolute values may lead to misinterpretation of CBC data. Current Interpretive Data was last revised on 2018. Basophil pct 0.2 % [facility] Comment: Interpretive Data Percent cell count reference ranges are not reported, since discordance with absolute values may lead to misinterpretation of CBC data. Current Interpretive Data was last revised on 2018. Blood 11/28/2024 3:03 AM SECURITY NURSE 11/28/2024 3:45 AM SECURITY NURSE us Bernardo Bobby MD LAB BLOOD ORDERABLES Fin al Result [facility] [place] [address] * (ABNORMAL) CBC with auto differential (11/28/2024 3:03 AM SECURITY NURSE) WBC 14.4(H) 3.8 - 9.9 K/cumm Hgb 12.9 11.9 - 15.5 g/dL [facility] Hct 38.4 35.6 - 45.5 % [facility] Plt 196 150 - 400 K/cumm [facility] MPV 9.2 9.1 - 12.3 fL [facility] RBC 4.30 3.90 - 5.20 M/cumm [facility] MCV 89.3 81.3 - 96.4 fL [facility] MCH 30.0 27.1 - 33.3 pg [facility] MCHC 33.6 32.3 - 35.7 g/dL [facility] RDW CV 12.1 11.1 - 14.9 % [facility] RDW SD 39.5 35.7 - 48.1 fL [facility] NRBC abs 0.00 0.00 - 0.01 K/cumm [facility] Blood Venous blood specimen / Unknown 11/28/2024 3:03 AM SECURITY NURSE 11/28/2024 3:45 AM SECURITY NURSE us Bernardo Bobyb MD LAB BLOOD ORDERABLES Fin al Result [facility] [place] [address] * Comprehensive metabolic panel (11/28/2024 3:03 AM SECURITY NURSE) Sodium 139 135 - 145 mmol/L Potassium, pl 4.2 3.3 - 4.9 mmol/L [facility] Chloride 106 97 - 110 mmol/L [facility] CO2 24 22 - 32 mmol/L [facility] Anion gap 9 2 - 15 mmol/L [facility] BUN 14 6 - 25 mg/dL [facility] Creatinine 0.85 0.60 - 1.10 mg/dL [facility] Glucose 104 70 - 199 mg/dL [facility] Comment: Interpretive Data Fasting glucose >/= 126 [...] classification and Diagnosis of Diabetes Diabetes Care 2021; 46: S19-S40. Current interpretive data was last revised 2022. Calcium 8.9 8.5 - 10.3 mg/dL [facility] Bilirubin, total 0.4 0.1 - 1.2 mg/dL [facility] Protein, pl 7.6 6.5 - 8.5 g/dL [facility] Albumin 4.6 3.5 - 5.0 g/dL [facility] Alk phos 56 40 - 130 Units/L [facility] ALT 13 7 - 45 Units/L [facility] AST 25 10 - 45 Units/L [facility] Blood Venous blood specimen / Unknown 11/28/2024 3:03 AM SECURITY NURSE 11/28/2024 3:17 AM SECURITY NURSE us Bernardo Bobby MD LAB BLOOD ORDERABLES Fin al Result [facility] [place] [address] from Last 3 Months Insurance [facility] ACCESS CHOICE Care Teams Marketing Outreach Coordinator Relationship Specialty Start Date End Date Nuris Arriaga MD [address] [address] PCP - General Internal Medicine 01/26/21
--- NOTE | 2025-02-06 11:38 | PM.IMHP ---
H&P: HPI History of Present Illness Date/Time: 02/06/25 11:38 Chief Complaint: Miscarriage Narrative: 24 y/o G1 at 14 3/7 weeks based on EDC 08/04/25. This due date was based on ultrasound exam at 10w2d, not consistent with LMP 10/09/24, that would have put her at 13 weeks gestation at the time. She says she was seen in an emergency department in [place] last week with bleeding. Ultrasound exam reportedly showed a live IUP with growth 1.5 weeks behind. She says she got a dose of Rhogam. Bleeding continued and she followed up in my office on 02/04. We were unable to auscultate heart tones. Ultrasound showed an IUP curled in an unusual position, with no movement and no cardiac motion. Maternal blood type AB neg. Review of Systems Review of Systems: All systems reviewed & are unremarkable except as noted in HPI and below PMFSH Past Medical History Medical History Marijuana smoker Smoker Asthma Hypothyroidism Social History Social History Years smoked: 1 Smoking status: Current every day smoker Tobacco type: cigarettes and e-cigarettes/vaping Additional smoking assessment comments: only vapes now Alcohol intake: former Alcohol use details: not currently drinking d/t ; socially before though Substance use: never Substance use type: does not use Living arrangements: with friend(s) Spiritual care concerns: No Meds Home Medications and Allergies Home Medications ?Medication ?Instructions ?Recorded ?Confirmed ?Type albuterol 90 mcg/actuation aerosol 90 mcg inhalation Q4-6H PRN SOB 02/04/25 02/04/25 History inhaler and Wheezing doxylamine 10 mg-pyridoxine (vit 1 tablet PO HS PRN nausea and 02/04/25 02/04/25 History B6) 10 mg tablet,delayed release vomiting levothyroxine 125 mcg tablet 125 mcg PO QAM 02/04/25 02/04/25 History ondansetron 8 mg disintegrating 8 mg PO Q8H PRN nausea and vomiting 02/04/25 02/04/25 History tablet [id number] 40 mg-1 1 tablet PO DAILY 02/04/25 02/04/25 History mg chewable tablet Allergies Allergy/AdvReac Type Severity Reaction Status Date / Time No Known Allergies Allergy Verified 02/04/25 18:29 Exam Const: Orientation/consciousness: patient oriented x3 Other: Well-developed, well-nourished female in no acute distress. Neck: Thyroid: thyroid normal Lymphatic: no lymphadenopathy noted (in neck, axilla or inguinal nodes) Resp: Effort & Inspection: normal respiratory effort Auscultation: clear to auscultation bilaterally Cardio: Rate: regular rate Rhythm: regular rhythm Heart sounds: S1 normal heart sound present and S2 normal heart sound present GI: Other: ABD: Soft, nontender, nondistended. No guarding or rebound tenderness. No hepatosplenomegaly. : General: Yes no CVA tenderness Other: Pelvic exam deferred to OR. Back/Spine/Pelvis: Back: no CVA tenderness Skin: General skin exam: normal color and no rashes or lesions noted Neuro: General: patient oriented x3 Extrem: Other: Extremities: nontender with no edema Psych: Mental Status: mental status grossly normal Affect: normal affect Assessment and Plan Assessment and plan (1) SAB (spontaneous ): Code(s): O03.9 - Complete or unspecified spontaneous without complication Status: Acute Assessment and Plan: A: Incomplete SAB. P: We reviewed medical as well as surgical management approaches. She opts for dilation and suction curettage. She understands risks of surgery to include risks of anesthesia, risks of pain, infection, bleeding, blood products, thromboembolic phenomena and damage to adjacent structures such as bowel, bladder, ureters, blood vessels and nerves. She understands all these risks and elects to proceed with surgery.
--- NOTE | 2025-02-06 13:13 | WPDHPUPDATE1 ---
History and Physical Update Update Date/Time: 02/06/25 13:13 History and Physical has been reviewed, including an updated exam of the patient. Bedside ultrasound transabdominally performed by me confirms IUP with no cardiac motion, no embryonic movement -- diagnosis of SAB confirmed. The patient and her family are satisfied and plan to continue with dilation and suction curettage as scheduled. There are NO changes in the patient's condition. Risks, benefits, and alternatives have been discussed and questions answered. Patient agrees to proceed with procedure.
[2025-02-06 14:00] VITALS: BP 109/78; PULSE 58; RESP 14; TEMP 36.8; O2SAT 100
[2025-02-06] MEDS: ACETAMINOPHEN 500 MG TABLET 1000 MG PO (14:15)
[2025-02-06] MEDS: LACTATED RINGERS 1,000 ML 30 ML IV CONT (14:15)
--- NOTE | 2025-02-06 14:33 | SUR.PREOP ---
DR GARCIA WAIVED RHOGAM TEST PT HAD ALREADY RECIEVED RHOGAM 1 WEEK AGO ~ 01/30/25.
--- NOTE | 2025-02-06 14:38 | P.PNAN_ITS ---
Anes - Initial Pre Proc Eval Procedure: Operation Date: 02/06/25 14:30 Proposed Procedures p Suction Dilation and Curettage - Junaid Martínez MD Date/Time: 02/06/25 14:38 Surgeon: Junaid Martínez MD Pre Op Diagnosis: MISSED AB Patient Data Age: 24 Gender: F Height: 1.7 m Weight: 71.67 kg Allergies Allergy/AdvReac Type Severity Reaction Status Date / Time No Known Allergies Allergy Verified 02/04/25 18:29 Home Medications ?Medication ?Instructions ?Recorded ?Confirmed ?Type albuterol 90 mcg/actuation aerosol 90 mcg inhalation Q4-6H PRN SOB 02/04/25 02/04/25 History inhaler and Wheezing doxylamine 10 mg-pyridoxine (vit 1 tablet PO HS PRN nausea and 02/04/25 02/04/25 History B6) 10 mg tablet,delayed release vomiting levothyroxine 125 mcg tablet 125 mcg PO QAM 02/04/25 02/04/25 History ondansetron 8 mg disintegrating 8 mg PO Q8H PRN nausea and vomiting 02/04/25 02/04/25 History tablet angvckl-lajg-XO 40 mg-1 1 tablet PO DAILY 02/04/25 02/04/25 History mg chewable tablet Patient hx anesthesia problems: none Family hx anesthesia problems: none Results Review: All pre-operative results and documents have been reviewed as part of the pre- operative evaluation. [facility] Past Medical History Medical History Marijuana smoker Smoker Asthma Hypothyroidism Social History Social History Years smoked: 1 Smoking status: Current every day smoker Tobacco type: cigarettes and e-cigarettes/vaping Additional smoking assessment comments: only vapes now Alcohol intake: former Alcohol use details: not currently drinking d/t ; socially before though Substance use: never Substance use type: does not use Living arrangements: with friend(s) Spiritual care concerns: No Anes - Eval Final PreProcedure Day of Procedure 02/06/25 14:38 Patient weight: overweight Lungs: normal air movement Airway: Mallampati scale class II Neurological: alert and oriented Last oral intake: >/= 8 hours ASA classification: II Anesthetic plan: proceed Anesthesia type and monitoring: general GIVS and standard monitoring Results Review: All pre-operative results and documents have been reviewed as part of the pre- operative evaluation. Pt smokes several cigs/day, vapes as well. 12-13 weeks missed ab. Informed Consent: The patient's anesthetic plan and its attendant risks and benefits were discussed with the patient/family/POA. Questions were solicited and answers provided to the satisfaction of the patient/family/POA.
--- NOTE | 2025-02-06 14:58 | SUR.OPER ---
350mL clear yellow urine drained from bladder during surgical procedure
[2025-02-06] MEDS: LIDOCAINE 1% LOCAL INJ 10 ML VIAL INFILTRATE (15:04)
--- NOTE | 2025-02-06 15:21 | W.PM.PROC2 ---
Procedure Note - Detailed Date of Procedure 02/06/25 Pre-op Diagnosis Inconplete SAB Post-op Diagnosis Same Procedure Performed Dilation and suction curettage under ultrasound guidance Surgeon Junaid Martínez MD Anesthesia MAC and Local (1% lidocaine) Findings Products of conception Description of Procedure The patient was taken to the operating room where she was prepared and draped in the usual sterile fashion in the dorsal lithotomy position. The bladder was drained with a red rubber catheter. A sterile speculum was placed into the vagina. The anterior lip of the cervix was grasped with a single-tooth tenaculum. Ten mL of 1% lidocaine was administered in a paracervical block. The cervix was gently dilated using Hegar dilators until an 8mm dilator could be passed. The 8mm curved tip suction curette was advanced. Suction curettage was performed and products of conception were aspirated. Sharp curettage was then performed until a good uterine cry was noted. A final pass with the suction curette was made. Transabdominal ultrasound exam was performed by me, confirming an empty endometrial cavity. The tenaculum was removed. Hemostasis was excellent. Sponge, lap, needle and instrument counts were correct. The patient was taken to the recovery room in stable condition. I was present and scrubbed for the entire procedure. Estimated Blood Loss 100 Drains No Packing No Pathology Yes (Endometrial curettings) Complications None Condition Stable Disposition PACU
[2025-02-06 15:22] VITALS: BP 127/78; PULSE 71; RESP 16; O2SAT 100
[2025-02-06 15:45] VITALS: BP 126/92; PULSE 65; RESP 16; O2SAT 100
[2025-02-06 16:15] VITALS: BP 121/85; PULSE 47; RESP 16
[2025-02-06 16:45] VITALS: BP 117/84; PULSE 46; RESP 16
[2025-02-06] MEDS: oxyCODONE HCL (*CRX) 5 MG TAB IR PO (17:10)
== END 2025-02-06 17:12 | disposition home or self-care (01) ==
PROVIDERS: Visit Provider Obstetrics & Gynecology
PROC: (CPT 59812; principal; 2025-02-06 14:30)
DX: O03.9 Complete or unspecified spontaneous abortion without complication (principal); G89.18 Other acute postprocedural pain; E03.9 Hypothyroidism, unspecified; J45.909 Unspecified asthma, uncomplicated; F17.290 Nicotine dependence, other tobacco product, uncomplicated; Z79.51 Long term (current) use of inhaled steroids
CPT/HCPCS: 59812; 88305; A9270; J2003; J2250; J3010; J7120